=== PATIENT | male | born 1950 ===

== ENCOUNTER 2016-11-12 20:49 | Inpatient (IN) | payer OTHER ==
[~2016-11-12] VITALS: Ht 185.4 cm; Wt 106.5 kg
[~2016-11-12 20:49] MED LIST: ASPI-556 PO; DYRE50 PO; ISOS30TA53 PO; LISI40TA4 PO; METO100T5 PO; NITR0.4T27 BU; PANT40TA25 PO; POTA99TA4 PO
[2016-11-12] MEDS ORDERED: DOXA2TAB PO (20:57)
[2016-11-12] MEDS ORDERED: NITROGLYCERIN 2% (1 GM=INCH) PACKET TP ONE (21:15)
[2016-11-12 21:42] LABS: BASOPHILS # (AUTO) 0.02 K/uL (0.00-0.20); BASOPHILS % (AUTO) 0.3 % (0.0-2.0); EOSINOPHILS # (AUTO) 0.08 K/uL (0.00-0.70); EOSINOPHILS % (AUTO) 1.42 % (1.0-6.0); HEMATOCRIT 42.1 % (41-53); HEMOGLOBIN 13.8 g/dL (13.5-17.5); LYMPHOCYTES # (AUTO) 1.4 K/uL (1.0-4.8); LYMPHOCYTES % (AUTO) 24.4 % (22.0-44.0); MEAN CORPUSCULAR HEMOGLOBIN 30.6 pg (26.0-34.0); MEAN CORPUSCULAR HGB CONC 32.9 G/dL (31.0-37.0); MEAN CORPUSCULAR VOLUME 93 fL (80-100); MONOCYTES # (AUTO) 0.4 K/uL (0.1-1.0); MONOCYTES % (AUTO) 7.2 % (2.0-9.0); NEUTROPHILS # (AUTO) 3.9 K/uL (1.8-7.7); NEUTROPHILS % (AUTO) 66.7 % (40.0-70.0); PLATELET COUNT (AUTO) 156 K/uL (150-450); RED BLOOD CELL COUNT(AUTO) 4.52 MIL/uL (4.50-5.90); RED CELL DISTRIBUTION WIDTH 14.9 % (11.5-14.5); WHITE BLOOD COUNT (AUTO) 5.9 K/uL (4.5-11.0)
[2016-11-12 21:50] LABS: INR 1.1 (0.9-1.1); PROTHROMBIN TIME 11.4 SEC (9.4-11.6)
[2016-11-12 21:51] LABS: CALCIUM, TOTAL 9.5 mg/dL (8.8-10.5); CREATININE 1.31 mg/dL (0.60-1.30); POTASSIUM 3.4 mmol/L (3.5-5.1)
[2016-11-12 21:57] LABS: ALBUMIN 3.5 g/dL (3.4-5.0); TOTAL PROTEIN, SERUM 7.4 g/dL (6.4-8.2)
[2016-11-12] MEDS ORDERED: ASPIRIN 81 MG CHEWABLE TABLET PO ONE (22:30)
[2016-11-12 22:41] LABS: APPEARANCE,URINE CLEAR (CLEAR); GLUCOSE, URINE (UA) NEGATIVE (NEGATIVE); KETONES,URINE NEGATIVE (NEGATIVE); LEUKOCYTE ESTERASE ,URINE NEGATIVE (NEGATIVE); OCCULT BLOOD,URINE NEGATIVE (NEGATIVE); PROTEIN,URINE NEGATIVE (NEGATIVE)
[2016-11-12 22:42] LABS: ADD UA MICROSCOPIC NO
[2016-11-13] MEDS ORDERED: MECLIZINE HCL 25 MG TABLET PO ONE (00:15)
[2016-11-13 00:32] VITALS: BP 160/109
[2016-11-13] MEDS ORDERED: IPRATROPIUM BROMIDE 0.5 MG/2.5 ML NEB SOLUTION NEB PRN (00:45)
[2016-11-13] MEDS ORDERED: POTASSIUM CHLORIDE 20 MEQ ER TABLET PO PRN (00:45)
[2016-11-13] MEDS ORDERED: MAGNESIUM OXIDE 400 MG TABLET PO PRN (00:45)
[2016-11-13] MEDS ORDERED: ALBUTEROL SULFATE 2.5 MG/0.5 ML NEB SOLUTION NEB PRN (00:45)
[2016-11-13] MEDS ORDERED: OxyCODONE HCL/ACETAMINOPHEN 5-325 MG TABLET PO PRN (00:45)
[2016-11-13] MEDS ORDERED: MAGNESIUM HYDROXIDE SUSPENSION 30 ML UDCUP PO PRN (00:45)
[2016-11-13] MEDS ORDERED: MAGNESIUM SULFATE 2 GM in DEXTROSE 5%-WATER 50 ML IV PRN (00:45)
[2016-11-13] MEDS ORDERED: ZOLPIDEM TARTRATE 5 MG TABLET PO PRN (00:45)
[2016-11-13] MEDS ORDERED: MAGNESIUM SULFATE 4 GM/WATER 100 ML IV PRN (00:45)
[2016-11-13] MEDS ORDERED: MORPHINE SULFATE 2 MG/ML SYRINGE IVP PRN (00:45)
[2016-11-13] MEDS ORDERED: ACETAMINOPHEN 325 MG TABLET PO PRN (00:45)
[2016-11-13] MEDS ORDERED: POTASSIUM CHL 10 MEQ/WATER 50 ML IV PRN (00:45)
[2016-11-13] MEDS ORDERED: ONDANSETRON HCL 4 MG/2 ML VIAL IVP PRN (00:45)
[2016-11-13] MEDS ORDERED: BISACODYL 10 MG RECTAL RECTAL SUPPOSITORY PR PRN (00:45)
[2016-11-13] MEDS: SODIUM CHLORIDE 0.9% 1,000 ML IV SCH ×2 (01:31→11:35)
[2016-11-13] MEDS: POTASSIUM CHLORIDE 20 MEQ ER TABLET PO PRN ×2 (01:31→09:33)
[2016-11-13 04:06] VITALS: BP 149/89
[2016-11-13] MEDS: NITROGLYCERIN 2% (1 GM=INCH) PACKET TP SCH ×3 (06:13→17:44)
[2016-11-13 07:16] VITALS: BP 153/99
[2016-11-13] MEDS ORDERED: ASPIRIN 81 MG EC TABLET PO SCH (09:00)
[2016-11-13] MEDS ORDERED: PANTOPRAZOLE SODIUM 40 MG DR TABLET PO SCH (09:00)
[2016-11-13] MEDS ORDERED: HEPARIN SODIUM,PORCINE 5,000 UNITS/ML VIAL SQ SCH (09:00)
[2016-11-13] MEDS ORDERED: ISOSORBIDE DINITRATE 10 MG TABLET PO SCH (09:00)
[2016-11-13] MEDS ORDERED: METOPROLOL TARTRATE 50 MG TABLET PO SCH (09:00)
[2016-11-13] MEDS ORDERED: DOXAZOSIN MESYLATE 2 MG TABLET PO SCH (09:00)
[2016-11-13] MEDS ORDERED: LISINOPRIL 20 MG TABLET PO SCH (09:00)
[2016-11-13 11:56] VITALS: BP 120/72
[2016-11-13 15:32] VITALS: BP 142/85
== END 2016-11-13 18:35 | disposition home or self-care (01) | DRG 303 ==
LOC: EMS 20:52 → 5S 23:24
PROVIDERS: ADMIT Internal Medicine; ATTEND Internal Medicine
DX: I25.10 Atherosclerotic heart disease of native coronary artery without angina pectoris (principal); N17.9 Acute kidney failure, unspecified; R07.9 Chest pain, unspecified; I10 Essential (primary) hypertension; E66.9 Obesity, unspecified; E78.5 Hyperlipidemia, unspecified; E87.6 Hypokalemia; Z79.82 Long term (current) use of aspirin; Z95.5 Presence of coronary angioplasty implant and graft; I25.2 Old myocardial infarction; Z68.31 Body mass index [BMI] 31.0-31.9, adult
CPT/HCPCS: 84132; 93005; 93306; 99285; J1644; J7030

== ENCOUNTER 2018-02-20 06:52 | Day surgery (SDC) | payer MEDICARE, BC ==
[~2018-02-20] VITALS: Ht 185.4 cm; Wt 117.0 kg
[~2018-02-20 06:52] MED LIST changes: +ATOR10TA84 PO; +CHL25 PO; +CLOP75 PO; +DOXA2TAB PO; +HYDR25TA84 PO; +ISOS30TA11 PO; -ISOS30TA53 PO; +METO-558 PO; +METO100T14 PO; -METO100T5 PO; -NITR0.4T27 BU; +NITR0.4T50 BU; -PANT40TA25 PO; +SUCR1TAB PO
[2018-02-20] MEDS ORDERED: RINGERS SOLUTION,LACTATED 1,000 ML IV ONE ×2 (07:00→07:30)
[2018-02-20 07:38] LABS: BASOPHILS % (AUTO) 0.7 % (0.0-2.0); EOSINOPHILS % (AUTO) 2.7 % (1.0-6.0); HEMATOCRIT 42.1 % (41-53); HEMOGLOBIN 14.7 g/dL (13.5-17.5); LYMPHOCYTES # (AUTO) 1.6 K/uL (1.0-4.8); LYMPHOCYTES % (AUTO) 29.8 % (22.0-44.0); MEAN CORPUSCULAR HEMOGLOBIN 31.3 pg (26.0-34.0); MEAN CORPUSCULAR HGB CONC 34.9 G/dL (31.0-37.0); MEAN CORPUSCULAR VOLUME 90 fL (80-100); MONOCYTES # (AUTO) 0.4 K/uL (0.1-1.0); MONOCYTES % (AUTO) 7.7 % (2.0-9.0); NEUTROPHILS # (AUTO) 3.1 K/uL (1.8-7.7); NEUTROPHILS % (AUTO) 59.1 % (40.0-70.0); PLATELET COUNT (AUTO) 161 K/uL (150-450); RED CELL DISTRIBUTION WIDTH 13.9 % (11.5-14.5)
[2018-02-20 07:45] LABS: CALCIUM, TOTAL 8.8 mg/dL (8.8-10.5); CREATININE 1.28 mg/dL (0.60-1.30); POTASSIUM 3.2 mmol/L (3.5-5.1)
[2018-02-20 07:48] LABS: INR 1.1 (0.9-1.1); PROTHROMBIN TIME 11.2 SEC (9.4-11.6)
[2018-02-20] MEDS ORDERED: IOHEXOL 300 MG/ML 150 ML VIAL ONE (08:40)
[2018-02-20] MEDS ORDERED: LIDOCAINE/PF 1% 30 ML VIAL ONE (08:40)
[2018-02-20] MEDS ORDERED: SODIUM BICARBONATE 50 MEQ/50 ML VIAL ONE (08:40)
[2018-02-20] MEDS ORDERED: HEPARIN SODIUM 1000 UNITS/NS 1,000 ML ONE (08:41)
[2018-02-20 08:56] VITALS: BP 187/75
[2018-02-20] MEDS ORDERED: MIDAZOLAM HCL 2 MG/2 ML VIAL ONE (09:01)
[2018-02-20] MEDS ORDERED: VERAPAMIL HCL 2.5 MG/ML 2 ML VIAL ONE (09:01)
[2018-02-20] MEDS ORDERED: NITROGLYCERIN 50 MG/D5% WATER 250 ML ONE (09:01)
[2018-02-20] MEDS ORDERED: FentaNYL CITRATE-PF 100 MCG/2 ML VIAL ONE (09:01)
[2018-02-20] MEDS ORDERED: HEPARIN SODIUM,PORCINE 1,000 UNITS/ML 10 ML VIAL ONE (09:23)
[2018-02-20] MEDS ORDERED: HEPARIN SODIUM 1000 UNITS/NS 1,000 ML IARTER ONE (09:25)
[2018-02-20] MEDS ORDERED: LIDOCAINE 1% 30 ML/SOD BICARB 8.4% 4 ML SQ ONE (09:30)
[2018-02-20] MEDS ORDERED: HEPARIN SODIUM,PORCINE 5,000 UNITS/ML VIAL IVP ONE ×2 (09:30→10:00)
[2018-02-20] MEDS ORDERED: IOHEXOL 300 MG/ML 150 ML VIAL IARTER ONE (09:30)
[2018-02-20] MEDS ORDERED: VERAPAMIL HCL 2.5 MG/ML 2 ML VIAL IARTER ONE (09:30)
[2018-02-20] MEDS ORDERED: NITROGLYCERIN/D5W 50 MG/250 ML IV BOTTLE IARTER ONE (09:30)
[2018-02-20] MEDS ORDERED: MIDAZOLAM HCL 2 MG/2 ML VIAL IVP ONE (09:45)
[2018-02-20] MEDS ORDERED: FentaNYL CITRATE-PF 100 MCG/2 ML VIAL IVP ONE (09:45)
[2018-02-20] MEDS ORDERED: IOHEXOL 300 MG/ML 50 ML VIAL ONE (09:46)
[2018-02-20] MEDS ORDERED: ASPIRIN 325 MG TABLET ONE (09:46)
[2018-02-20] MEDS ORDERED: IOHEXOL 300 MG/ML 100 ML VIAL ONE (09:46)
[2018-02-20] MEDS ORDERED: TICAGRELOR 90 MG TABLET ONE (09:46)
[2018-02-20] MEDS ORDERED: ASPIRIN 325 MG TABLET PO ONE (10:00)
[2018-02-20] MEDS ORDERED: IOHEXOL 240 MG/ML 50 ML VIAL IARTER ONE (10:00)
[2018-02-20] MEDS ORDERED: TICAGRELOR 90 MG TABLET PO ONE (10:00)
[2018-02-20] MEDS ORDERED: IOHEXOL 300 MG/ML 100 ML VIAL IARTER ONE (10:00)
[2018-02-20 10:25] VITALS: BP 206/89
== END 2018-02-20 16:00 | disposition home or self-care (01) ==
LOC: CATHLAB 06:52
PROVIDERS: ATTEND Internal Medicine Cardiovascular Disease
DX: I25.118 Atherosclerotic heart disease of native coronary artery with other forms of angina pectoris (principal); I10 Essential (primary) hypertension; E78.00 Pure hypercholesterolemia, unspecified; K21.9 Gastro-esophageal reflux disease without esophagitis; Z79.82 Long term (current) use of aspirin; Z79.01 Long term (current) use of anticoagulants; Z95.5 Presence of coronary angioplasty implant and graft; Z98.890 Other specified postprocedural states; Z79.899 Other long term (current) drug therapy; Z82.49 Family history of ischemic heart disease and other diseases of the circulatory system
CPT/HCPCS: 36415; 80048; 85025; 85610; 85730; 92928; 93005; 93458; 99152; 99153; C1769; C1874; J1644 ×2; J2250; J3010; J3490 ×4; J7120; Q9967 ×3; 92920

== ENCOUNTER → 2018-07-10 | Outpatient (CLI) | payer MEDICARE, BC ==
[~2018-07-10] MED LIST changes: -CLOP75 PO; +CLOP75TA3 PO; -METO100T14 PO
== END | disposition home or self-care (01) ==
LOC: RADMN 09:48
PROVIDERS: ATTEND Family Medicine
DX: I67.82 Cerebral ischemia (principal); I67.2 Cerebral atherosclerosis
CPT/HCPCS: 70450